=== PATIENT | male | born 1990 | race Two or more races ===

== ENCOUNTER 2016-10-17 16:14 | Emergency (ER) | payer SELFPAY ==
[~2016-10-17] VITALS: Ht 175.3 cm; Wt 70.8 kg
[2016-10-17 16:36] VITALS: BP 143/94
[2016-10-17] MEDS ORDERED: ONDANSETRON HCL/PF 4 MG/2 ML VIAL IV STA (16:36)
--- NOTE | 2016-10-17 16:39 | NUR ---
PT AMBULATORY TO ER BED 16 WITH COMPLAINTS OF GENERALIZED WEAKNESS S/P HECTIC LIFESTYLE. PT STATES THAT HE BEGAN FEELING A L SIDED CHEST PAIN WHEN WAKING UP THIS MORNING ASSOCIATED WITH DRINKING HEAVILY LAST NIGHT. PT IS WARM TO TOUCH, NON DIAPHORETIC, NON TACHYCARDIC, BREATHING EQUAL AND UNLABORED. PT PLACED IN ER BED 16, SEEN AND EVALUATED BY FELIX PAK.
--- NOTE | 2016-10-17 16:45 | NUR ---
Patient does not wish to proceed with medical care recommended by FELIX PAK. Patient given information related to possible complications, up to and including , which could occur as a result of leaving the hospital at this time. Patient verbalizes understanding of risks involved due to leaving against medical advice. Patient has signed AMA form.
[2016-10-17] MEDS ORDERED: IV NS 0.9% 1,000 ML BAG IV ONE (17:00)
== END 2016-10-17 16:48 | disposition left against medical advice (07) ==
LOC: ER 16:15
DX: R07.89 Other chest pain (principal); F41.9 Anxiety disorder, unspecified; F10.20 Alcohol dependence, uncomplicated
CPT/HCPCS: A4606; Z7610

== ENCOUNTER 2018-01-29 09:16 | Emergency (ER) | payer OTHER ==
[~2018-01-29] VITALS: Ht 175.3 cm; Wt 68.0 kg
[2018-01-29 09:16] VITALS: BP 129/83
[2018-01-29] MEDS ORDERED: oxyCODONE/APAP (5/325 MG) 1 UDTAB TABLET ONE (09:46)
[2018-01-29] MEDS ORDERED: IBUPROFEN 600 MG TABLET PO ONE ×2 (09:47→10:00)
[2018-01-29] MEDS ORDERED: oxyCODONE/APAP (5/325 MG) 1 UDTAB TABLET PO ONE (10:00)
== END 2018-01-29 11:29 | disposition home or self-care (01) ==
LOC: ER 09:22
DX: S86.812A Strain of other muscle(s) and tendon(s) at lower leg level, left leg, initial encounter (principal); M25.362 Other instability, left knee; F41.9 Anxiety disorder, unspecified; F10.10 Alcohol abuse, uncomplicated; Y90.9 Presence of alcohol in blood, level not specified; X58.XXXA Exposure to other specified factors, initial encounter; Y93.89 Activity, other specified; Y92.89 Other specified places as the place of occurrence of the external cause; Y99.8 Other external cause status
CPT/HCPCS: 73564-TC; A4606; Z7610

== ENCOUNTER 2018-06-22 12:27 | Emergency (ER) | payer OTHER ==
[~2018-06-22] VITALS: Ht 167.6 cm; Wt 65.8 kg
[2018-06-22 12:50] VITALS: BP 137/78
== END 2018-06-22 13:23 | disposition home or self-care (01) ==
LOC: ER 12:32
DX: K64.4 Residual hemorrhoidal skin tags (principal); F41.9 Anxiety disorder, unspecified; F10.10 Alcohol abuse, uncomplicated; Y90.9 Presence of alcohol in blood, level not specified; Z96.659 Presence of unspecified artificial knee joint
CPT/HCPCS: 99283; A4606; Z7610

== ENCOUNTER 2018-09-19 05:40 | Emergency (ER) | payer OTHER ==
[~2018-09-19] VITALS: Ht 172.7 cm; Wt 72.6 kg
--- NOTE | 2018-09-19 05:41 | NUR ---
PT BIBSELF COMPLAINING OF SOB AND CHEST PAIN. PT STATES THEY WOKE UP AT 0300 WITH SOB AND CHEST PAIN, 09/21. PT AXO4. RESPIRATIONS EVEN AND UNLABORED. PT PUT ON THE ARTIST AGENT AND PULSE OX. PENDING EVAL FROM ER .
--- NOTE | 2018-09-19 06:08 | NUR ---
XRAY AT BEDSIDE.
--- NOTE | 2018-09-19 06:15 | NUR ---
HOTEL MANAGER AT BEDSIDE. LABS DRAWN.
[2018-09-19 06:27] LABS: BASOPHILS % (AUTO) 0.6 % (0.0-2.0); HEMATOCRIT 48 % (39-51); HEMOGLOBIN 16.8 g/dL (13.5-17.5); LYMPHOCYTES % (AUTO) 17.3 % (20.0-44.0); MEAN CORPUSCULAR HGB CONC 35 g/dl (31.0-36.0); MEAN CORPUSCULAR VOLUME 93 fL (80-96); MONOCYTES # (AUTO) 0.6 /CMM (0.1-1.30); MONOCYTES % (AUTO) 9.4 % (2.0-12.0); NEUTROPHILS # (AUTO) 4.3 /CMM (1.8-8.9); NEUTROPHILS % (AUTO) 71.7 % (43.0-81.0); PLATELET COUNT (AUTO) 266 /CMM (150-450); RED BLOOD CELL COUNT(AUTO) 5.18 MIL/uL (4.5-6.0)
[2018-09-19 06:32] LABS: CALCIUM, SERUM 9.5 mg/dL (8.5-10.1); CARBON DIOXIDE 25 mmol/L (21-32); CHLORIDE 103 mmol/L (98-107); GLUCOSE 110 mg/dL (74-106); POTASSIUM 4.1 mmol/L (3.5-5.1); SODIUM SERUM 142 mmol/L (136-145); UREA NITROGEN, BLOOD 13 mg/dL (7-18)
[2018-09-19 06:38] LABS: ALANINE AMINOTRANSFERASE 119 U/L (12-78); ALBUMIN 4.4 g/dL (3.4-5.0); ALKALINE PHOSPHATASE 120 U/L (46-116); ASPARTATE AMINOTRANSFERASE 71 U/L (15-37); BILIRUBIN,DIRECT 0.1 mg/dL (0.0-0.2); BILIRUBIN,TOTAL 0.4 mg/dL (0.2-1.0); LIPASE 81 U/L (73-393); TOTAL PROTEIN, SERUM 8.6 g/dL (6.4-8.2)
--- NOTE | 2018-09-19 06:50 | NUR ---
Patient discharged to home in stable condition. Written and verbal after care instructions given. Patient verbalizes understanding of instruction. Pt ambulatory with steady gait.
[2018-09-19 06:51] VITALS: BP 136/88
== END 2018-09-19 06:51 | disposition home or self-care (01) ==
LOC: ER 05:42
DX: F41.9 Anxiety disorder, unspecified (principal); R07.89 Other chest pain; F10.10 Alcohol abuse, uncomplicated; Y90.9 Presence of alcohol in blood, level not specified; Z98.890 Other specified postprocedural states
CPT/HCPCS: 36415; 71045-TC; 80048-TC; 80076-TC; 83690-TC; 84484-TC; 85025-TC

== ENCOUNTER 2019-02-03 07:05 | Emergency (ER) | payer OTHER ==
[~2019-02-03] VITALS: Ht 175.3 cm; Wt 73.9 kg
--- NOTE | 2019-02-03 07:08 | NUR ---
CALLED PT IN WAITING ROOM. NO REPSONSE.
[2019-02-03 07:20] VITALS: BP 139/91
--- NOTE | 2019-02-03 07:44 | NUR ---
Patient discharged to home in stable condition. Written and verbal after care instructions given. Patient verbalizes understanding of instruction.
== END 2019-02-03 07:44 | disposition home or self-care (01) ==
LOC: ER 07:07
DX: F41.9 Anxiety disorder, unspecified (principal); F10.10 Alcohol abuse, uncomplicated; Z98.890 Other specified postprocedural states; Y90.9 Presence of alcohol in blood, level not specified

== ENCOUNTER 2019-02-27 12:46 | Emergency (ER) | payer OTHER ==
[~2019-02-27] VITALS: Ht 175.3 cm; Wt 73.9 kg
[2019-02-27 12:52] VITALS: BP 128/82
[2019-02-27] MEDS ORDERED: IV NS 0.9% 500 ML BAG IV ONE (13:00)
== END 2019-02-27 13:17 | disposition home or self-care (01) ==
LOC: ER 12:51
DX: F10.10 Alcohol abuse, uncomplicated (principal); F41.9 Anxiety disorder, unspecified; R11.2 Nausea with vomiting, unspecified; Y90.9 Presence of alcohol in blood, level not specified
CPT/HCPCS: 96360; 99283; J7030

== ENCOUNTER 2019-03-06 22:28 | Emergency (ER) | payer OTHER ==
[~2019-03-06] VITALS: Ht 175.3 cm; Wt 73.9 kg
[2019-03-06] MEDS ORDERED: IV NS 0.9% 1,000 ML BAG IV ONE (23:00)
[2019-03-06] MEDS ORDERED: ONDANSETRON HCL/PF 4 MG/2 ML VIAL IVP ONE (23:00)
[2019-03-06] MEDS ORDERED: ONDANSETRON HCL/PF 4 MG/2 ML VIAL ONE (23:03)
--- NOTE | 2019-03-06 23:04 | NUR ---
PT TO RADIOLOGY ON [facility].
--- NOTE | 2019-03-06 23:05 | NUR ---
RIKI FROM HOME. TO ER BED 10. AAO, INTOXICATED, SMELLS OF ALCOHOL. NO RESP DISTRESS NOTED. C/O "I DONT FEEL GOOD. NAY BEEN BINGEING FOR THE PAST 4 DAYS". PT REPORTS THAT HIS CHEST HURT IN THE MID CHEST. C/O NAUSEA. PT REPORT THAT HE DRINKS PLENTY OF ALCOHOL AND HE IS ON LIBRIUM. RAYMON COLBERT AT BEDSIDE FOR EVAL. ORDERS RECEIVED,NOTED AND CARRIED OUT.
--- NOTE | 2019-03-07 00:20 | NUR ---
Patient discharged to home in stable condition. Written and verbal after care instructions given. Patient verbalizes understanding of instruction.IV removed. Catheter intact and site benign. Pressure and 4x4 applied to site. No bleeding noted. Pt ambulatory with a steady gait
[2019-03-07 00:21] VITALS: BP 108/77
== END 2019-03-07 00:22 | disposition home or self-care (01) ==
LOC: ER 22:29
DX: S09.8XXA Other specified injuries of head, initial encounter (principal); F10.129 Alcohol abuse with intoxication, unspecified; F41.9 Anxiety disorder, unspecified; R11.2 Nausea with vomiting, unspecified; Z98.890 Other specified postprocedural states; W18.39XA Other fall on same level, initial encounter; Y93.89 Activity, other specified; Y92.89 Other specified places as the place of occurrence of the external cause; Y99.8 Other external cause status; Y90.9 Presence of alcohol in blood, level not specified
CPT/HCPCS: 70450; 72125; 96361; 96374; 99284; J2405; J7030 ×2; L0172

== ENCOUNTER 2019-03-08 00:56 | Emergency (ER) | payer OTHER ==
[~2019-03-08] VITALS: Ht 175.3 cm; Wt 75.7 kg
[2019-03-08 01:01] VITALS: BP 134/87
[2019-03-08] MEDS ORDERED: LORAZEPAM INJ 2 MG/ML VIAL ONE (01:11)
[2019-03-08] MEDS ORDERED: LORAZEPAM INJ 2 MG/ML VIAL IM ONE (01:30)
[2019-03-08] MEDS ORDERED: IV NS 0.9% 1,000 ML BAG IV ONE (01:30)
== END 2019-03-08 02:03 | disposition home or self-care (01) ==
LOC: ER 00:59
DX: F10.230 Alcohol dependence with withdrawal, uncomplicated (principal); F41.9 Anxiety disorder, unspecified; Z98.890 Other specified postprocedural states; Y90.9 Presence of alcohol in blood, level not specified
CPT/HCPCS: 96372; 99283; J2060; J7030

== ENCOUNTER 2019-04-13 04:36 | Emergency (ER) | payer OTHER ==
[~2019-04-13] VITALS: Ht 175.3 cm; Wt 75.7 kg
[2019-04-13 04:44] VITALS: BP 130/85
== END 2019-04-13 04:56 | disposition home or self-care (01) ==
LOC: ER 04:43
DX: J02.9 Acute pharyngitis, unspecified (principal); F41.9 Anxiety disorder, unspecified; F10.10 Alcohol abuse, uncomplicated; Y90.9 Presence of alcohol in blood, level not specified; Z98.890 Other specified postprocedural states

== ENCOUNTER 2019-05-05 22:39 | Emergency (ER) | payer OTHER ==
[~2019-05-05] VITALS: Ht 175.3 cm; Wt 75.7 kg
[2019-05-05 23:47] VITALS: BP 147/99
--- NOTE | 2019-05-05 23:47 | NUR ---
PT BIBMOTHER C/O SOB, DIARRHEA, CHEST PRESSURE WITH NUMBNESS AND TINGLING IN BOTH HAND AND HEAD X4 DAYS. UNABLE TO SLEEP X4 DAYS. (+) ETOH. NAD NOTED. RESP EVEN AND UNLABORED. PT IN BED 13. WILL CONTINUE TO MONITOR.
--- NOTE | 2019-05-05 23:54 | NUR ---
PHLEB AT BEDSIDE FOR LAB DRAW
[2019-05-05] MEDS ORDERED: LORAZEPAM 0.5 MG TABLET ONE (23:57)
--- NOTE | 2019-05-05 23:59 | NUR ---
TECH AT BEDSIDE FOR EKG
[2019-05-06] MEDS ORDERED: LORAZEPAM 1 MG TABLET PO ONE
[2019-05-06 00:21] LABS: CALCIUM, SERUM 9.4 mg/dL (8.5-10.1); POTASSIUM 3.7 mmol/L (3.5-5.1)
== END 2019-05-06 00:56 | disposition home or self-care (01) ==
LOC: ER 22:41
DX: F41.9 Anxiety disorder, unspecified (principal); F10.10 Alcohol abuse, uncomplicated; E86.0 Dehydration; Y90.9 Presence of alcohol in blood, level not specified; Z98.890 Other specified postprocedural states
CPT/HCPCS: 36415; 80048-TC

== ENCOUNTER 2019-07-14 08:56 | Emergency (ER) | payer MEDICAID, OTHER ==
[~2019-07-14] VITALS: Ht 175.3 cm; Wt 68.0 kg
--- NOTE | 2019-07-14 09:42 | NUR ---
dr thompson at bedside for eval.
[2019-07-14] MEDS ORDERED: ONDANSETRON HCL/PF 4 MG/2 ML VIAL ONE (09:45)
--- NOTE | 2019-07-14 09:55 | NUR ---
iv line started blood drawn and sent to lab.
[2019-07-14 09:59] LABS: BASOPHILS % (AUTO) 0.5 % (0.0-2.0); EOSINOPHILS % (AUTO) 0.2 % (0.0-6.0); HEMATOCRIT 47 % (39-51); LYMPHOCYTES # (AUTO) 0.8 /CMM (0.8-4.8); LYMPHOCYTES % (AUTO) 17.1 % (20.0-44.0); MEAN CORPUSCULAR HGB CONC 34 g/dl (31.0-36.0); MEAN CORPUSCULAR VOLUME 95 fL (80-96); MONOCYTES # (AUTO) 0.3 /CMM (0.1-1.30); MONOCYTES % (AUTO) 5.9 % (2.0-12.0); NEUTROPHILS # (AUTO) 3.5 /CMM (1.8-8.9); NEUTROPHILS % (AUTO) 76.3 % (43.0-81.0); PLATELET COUNT (AUTO) 296 /CMM (150-450); RED BLOOD CELL COUNT(AUTO) 4.97 MIL/uL (4.5-6.0); WHITE BLOOD COUNT (AUTO) 4.6 K/uL (4.3-11.0)
[2019-07-14] MEDS ORDERED: IV NS 0.9% 1,000 ML BAG IV ONE (10:00)
[2019-07-14] MEDS ORDERED: ONDANSETRON HCL/PF - ER 4 MG/2 ML VIAL IV ONE (10:00)
[2019-07-14 10:05] LABS: POTASSIUM 3.9 mmol/L (3.5-5.1)
[2019-07-14 10:12] LABS: BILIRUBIN,DIRECT 0.1 mg/dL (0.0-0.2); BILIRUBIN,TOTAL 0.3 mg/dL (0.2-1.0); TOTAL PROTEIN, SERUM 8.1 g/dL (6.4-8.2)
[2019-07-14 11:33] LABS: APPEARANCE,URINE Clear (CLEAR); BILIRUBIN,URINE Negative (NEGATIVE); BLOOD, URINE Negative Ery/uL (NEGATIVE); COLOR,URINE Yellow (YELLOW); KETONES,URINE Negative (NEGATIVE); LEUKOCYTE ESTERASE ,URINE Negative (NEGATIVE); NITRITE, URINE Negative (NEGATIVE); PROTEIN,URINE Negative (NEGATIVE); UGLUCOSE Negative (NEGATIVE); UROBILINOGEN,URINE 0.2 EU/dL (0.2)
--- NOTE | 2019-07-14 12:18 | NUR ---
Patient discharged to home in stable condition. Written and verbal after care instructions given. Patient verbalizes understanding of instruction.IV removed. Catheter intact and site benign. Pressure and 4x4 applied to site. No bleeding noted.
[2019-07-14 12:28] VITALS: BP 146/86
== END 2019-07-14 12:28 | disposition home or self-care (01) ==
LOC: ER 08:58
DX: F10.20 Alcohol dependence, uncomplicated (principal); R11.2 Nausea with vomiting, unspecified; R10.9 Unspecified abdominal pain; F41.9 Anxiety disorder, unspecified; Z98.890 Other specified postprocedural states; Y90.9 Presence of alcohol in blood, level not specified
CPT/HCPCS: 36415; 80048; 80076; 81001; 83690; 85025; 96361; 96374; 99283; J2405 ×2; J7030; 81000-TC

== ENCOUNTER 2020-08-04 19:56 | Emergency (ER) | payer MEDICAID, OTHER ==
[~2020-08-04] VITALS: Ht 175.3 cm; Wt 70.8 kg
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
--- NOTE | 2020-08-04 20:20 | NUR ---
TECH AT BEDSIDE FOR EKG
[2020-08-04 20:51] LABS: BILIRUBIN,URINE SMALL (NEGATIVE); COLOR,URINE YELLOW (YELLOW); LEUKOCYTE ESTERASE ,URINE Negative (NEGATIVE); NITRITE, URINE Negative (NEGATIVE); PH,URINE 5.5 (5.0-8.0); PROTEIN,URINE Negative (NEGATIVE); UGLUCOSE Negative (NEGATIVE); UROBILINOGEN,URINE 0.2 EU/dL (0.2)
[2020-08-04 21:51] LABS: WBC,URINE 0-2 /HPF (0-3)
[2020-08-04 21:52] LABS: BACTERIA,URINE 1+ /HPF (None Seen); MUCUS,URINE Moderate /LPF (None Seen); SQUAMOUS EPITHELIAL CELL,UR Few /HPF (None Seen)
[2020-08-04] MEDS ORDERED: DOXY100C2 PO (22:16)
[2020-08-04] MEDS ORDERED: CEFTRIAXONE 500 MG VIAL ONE (22:24)
[2020-08-04] MEDS ORDERED: LIDOCAINE /MPF 1% VIAL 5 ML VIAL ONE (22:24)
[2020-08-04] MEDS ORDERED: CEFTRIAXONE 500 MG VIAL IM ONE (22:30)
[2020-08-04 22:37] VITALS: BP 133/74
--- NOTE | 2020-08-04 22:37 | NUR ---
Patient discharged to home in stable condition. Written and verbal after care instructions given. Patient verbalizes understanding of instruction.
== END 2020-08-04 22:37 | disposition home or self-care (01) ==
LOC: ER 20:00
DX: F41.9 Anxiety disorder, unspecified (principal); R00.2 Palpitations; R82.71 Bacteriuria; F10.10 Alcohol abuse, uncomplicated; E78.1 Pure hyperglyceridemia; Y90.9 Presence of alcohol in blood, level not specified; Z98.890 Other specified postprocedural states; Z79.899 Other long term (current) drug therapy
CPT/HCPCS: 81001; 87086; 87491; 87591; 93005; 96372; 99284; J0696; J3490

== ENCOUNTER 2020-08-06 19:47 | Emergency (ER) | payer OTHER ==
[~2020-08-06] VITALS: Ht 175.3 cm; Wt 70.8 kg
[~2020-08-06 19:47] MED LIST: DOXY100C2 PO
--- NOTE | 2020-08-06 20:20 | NUR ---
URINE COLLECTED AND SENT TO LAB
[2020-08-06] MEDS ORDERED: MORPHINE SULFATE INJ 2 MG/ML DISP.SYRIN IV ONE (20:30)
[2020-08-06] MEDS ORDERED: IV NS 0.9% 1,000 ML BAG IV ONE (20:30)
[2020-08-06] MEDS ORDERED: PANTOPRAZOLE 40 MG VIAL IV ONE (20:30)
[2020-08-06] MEDS ORDERED: ONDANSETRON HCL/PF 4 MG/2 ML VIAL IVP ONE (20:30)
[2020-08-06] MEDS ORDERED: MORPHINE SULFATE INJ 4 MG/ML DISP.SYRIN ONE (20:38)
[2020-08-06] MEDS ORDERED: PANTOPRAZOLE 40 MG VIAL ONE (20:38)
[2020-08-06] MEDS ORDERED: ONDANSETRON HCL/PF 4 MG/2 ML VIAL ONE (20:38)
[2020-08-06 20:42] LABS: BASOPHILS # (AUTO) 0.1 /CMM (0.0-0.2); BASOPHILS % (AUTO) 0.7 % (0.0-2.0); EOSINOPHILS % (AUTO) 1.1 % (0.0-6.0); HEMATOCRIT 49 % (39-51); HEMOGLOBIN 16.9 g/dL (13.5-17.5); LYMPHOCYTES # (AUTO) 1.1 /CMM (0.8-4.8); LYMPHOCYTES % (AUTO) 15.3 % (20.0-44.0); MEAN CORPUSCULAR HGB CONC 34 g/dl (31.0-36.0); MEAN CORPUSCULAR VOLUME 96 fL (80-96); MONOCYTES # (AUTO) 0.6 /CMM (0.1-1.30); MONOCYTES % (AUTO) 7.9 % (2.0-12.0); NEUTROPHILS # (AUTO) 5.5 /CMM (1.8-8.9); PLATELET COUNT (AUTO) 316 /CMM (150-450); RED BLOOD CELL COUNT(AUTO) 5.13 MIL/uL (4.5-6.0); WHITE BLOOD COUNT (AUTO) 7.3 K/uL (4.3-11.0)
[2020-08-06] MEDS ORDERED: IOHEXOL-300 100 ML VIAL IV ONE ×2 (20:58→21:20)
[2020-08-06] MEDS ORDERED: IV NS 0.9% 250 ML IV ONE ×2 (20:58→21:20)
[2020-08-06 21:04] LABS: ALBUMIN 4.3 g/dL (3.4-5.0); BILIRUBIN,DIRECT 0.2 mg/dL (0.0-0.2); BILIRUBIN,TOTAL 0.8 mg/dL (0.2-1.0); CALCIUM, SERUM 9.2 mg/dL (8.5-10.1); POTASSIUM 3.5 mmol/L (3.5-5.1)
[2020-08-06] MEDS ORDERED: CT SWABBABLE VALVE TRANS SET 1 EA INFUS.SET MC ONE (21:20)
[2020-08-06] MEDS ORDERED: NYST5ORA PO (21:45)
[2020-08-06] MEDS ORDERED: IBUP-1957 PO (21:51)
[2020-08-06 21:54] LABS: OCCULT BLOOD STOOL NEGATIVE (NEGATIVE)
[2020-08-06] MEDS ORDERED: ALBUTEROL FS 2.5 MG/3 ML VIAL.NEB CONTNEB ONE (22:00)
--- NOTE | 2020-08-06 22:33 | NUR ---
Patient discharged to home in stable condition. Written and verbal after care instructions given. Patient verbalizes understanding of instruction. IV removed. Catheter intact and site benign. Pressure and 4x4 applied to site. No bleeding noted.
[2020-08-06 22:35] VITALS: BP 124/72
== END 2020-08-06 22:35 | disposition home or self-care (01) ==
LOC: ER 19:50
DX: K14.1 Geographic tongue (principal); K63.89 Other specified diseases of intestine; F41.9 Anxiety disorder, unspecified; Z98.890 Other specified postprocedural states; Z79.899 Other long term (current) drug therapy
CPT/HCPCS: 36415; 71045; 74177; 80048; 80076; 82272; 83690; 85025; 85730; 87806; 96361; 96374; 96375; 99285; C9113; J2270; J2405; J7030; J7050 ×2; Q9967 ×2

== ENCOUNTER 2021-10-02 04:51 | Emergency (ER) | payer OTHER ==
[~2021-10-02] VITALS: Ht 175.3 cm; Wt 72.6 kg
[~2021-10-02 04:51] MED LIST changes: +IBUP-1957 PO; +NYST5ORA PO
--- NOTE | 2021-10-02 05:04 | NUR ---
CALLED FOR TRIAGE, NO ANSWER.
--- NOTE | 2021-10-02 06:00 | NUR ---
BIBSELF C/O EPIGASTRIC PAIN AND TREMORS. ENDORSES CHRONIC ALCOHOL ABUSE LAST DRINK WAS 2 HOURS [facility]CH GR[facility]ER. PT ALSO ENDORSES AN EPISODE OF BLOODY EMESIS AND DIFFICULTY SLEEPING. PT AWAKE AND ALERT X4 AMBULATORY WITH STEADY GAIT BREATHING EVEN AND UNLABORED. ALL V/S WNL.
[2021-10-02] MEDS ORDERED: CHLORDIAZEPOXIDE HCL 25 MG CAPSULE ONE (06:21)
[2021-10-02] MEDS ORDERED: FAMOTIDINE/PF INJ 20 MG/2 ML VIAL IV ONE ×2 (06:21→06:30)
[2021-10-02] MEDS ORDERED: CHLORDIAZEPOXIDE HCL 25 MG CAPSULE PO ONE (06:30)
[2021-10-02] MEDS ORDERED: IV NS 0.9% 1,000 ML BAG IV ONE (06:30)
--- NOTE | 2021-10-02 06:35 | NUR ---
20G IV LINE ESTABLISHED AT [facility]. BLOOD DRAWN AND SENT TO LAB. URINE COLLECTED AND SENT TO LAB.
[2021-10-02 06:56] LABS: BASOPHILS % (AUTO) 0.6 % (0.0-2.0); EOSINOPHILS % (AUTO) 0.6 % (0.0-6.0); HEMATOCRIT 49 % (39-51); HEMOGLOBIN 16.8 g/dL (13.5-17.5); LYMPHOCYTES # (AUTO) 0.7 K/uL (0.8-4.8); LYMPHOCYTES % (AUTO) 11.9 % (20.0-44.0); MEAN CORPUSCULAR HGB CONC 35 g/dl (31.0-36.0); MEAN CORPUSCULAR VOLUME 97 fL (80-96); MONOCYTES # (AUTO) 0.5 K/uL (0.1-1.30); NEUTROPHILS # (AUTO) 4.4 K/uL (1.8-8.9); NEUTROPHILS % (AUTO) 77.9 % (43.0-81.0); PLATELET COUNT (AUTO) 381 K/uL (150-450); RED BLOOD CELL COUNT(AUTO) 4.99 MIL/uL (4.5-6.0); WHITE BLOOD COUNT (AUTO) 5.7 K/uL (4.3-11.0)
[2021-10-02 06:59] LABS: BILIRUBIN,URINE NEGATIVE (NEGATIVE); COLOR,URINE YELLOW (YELLOW); LEUKOCYTE ESTERASE ,URINE NEGATIVE (NEGATIVE); NITRITE, URINE NEGATIVE (NEGATIVE); PH,URINE 7.5 (5.0-8.0); PROTEIN,URINE TRACE mg/dl (NEGATIVE); UGLUCOSE NEGATIVE (NEGATIVE); UROBILINOGEN,URINE 0.2 EU/dL (0.2)
[2021-10-02 07:18] LABS: BILIRUBIN,DIRECT 0.1 mg/dL (0.0-0.2); BILIRUBIN,TOTAL 0.4 mg/dL (0.2-1.0); CALCIUM, SERUM 9.2 mg/dL (8.5-10.1); CREATININE 0.9 mg/dL (0.6-1.3); POTASSIUM 3.9 mmol/L (3.5-5.1); TOTAL PROTEIN, SERUM 8.9 g/dL (6.4-8.2)
[2021-10-02] MEDS ORDERED: ALPR1TAB2 PO (07:47)
[2021-10-02] MEDS ORDERED: FAMO-131 PO (07:47)
--- NOTE | 2021-10-02 07:54 | NUR ---
IV removed. Catheter intact and site benign. Pressure and 4x4 applied to site. No bleeding noted.Patient discharged to home in stable condition. Written and verbal after care instructions given. Patient verbalizes understanding of instruction.
[2021-10-02 07:55] VITALS: BP 141/85
[2021-10-02 08:47] LABS: BACTERIA,URINE Few /HPF (None Seen); SQUAMOUS EPITHELIAL CELL,UR None Seen /HPF (None Seen)
[2021-10-02 08:48] LABS: MUCUS,URINE Few /LPF (None Seen)
== END 2021-10-02 07:55 | disposition home or self-care (01) ==
LOC: ER 05:02
DX: K29.70 Gastritis, unspecified, without bleeding (principal); F10.20 Alcohol dependence, uncomplicated; F41.9 Anxiety disorder, unspecified; Z79.899 Other long term (current) drug therapy; Y90.2 Blood alcohol level of 40-59 mg/100 ml
CPT/HCPCS: 36415; 80048; 80076; 80143; 80307; 80320; 81001; 83690; 85025; 96361; 96374; 99283; J3490; J7030; G0480

== ENCOUNTER 2021-11-23 18:07 | Emergency (ER) | payer OTHER ==
[~2021-11-23] VITALS: Ht 175.3 cm; Wt 77.1 kg
[~2021-11-23 18:07] MED LIST changes: +ALPR1TAB2 PO; +FAMO-131 PO
--- NOTE | 2021-11-23 18:19 | NUR ---
TO ER BED 9. BIBS C/O ABDOMINAL PAIN X2WKS PAIN IS WORSE THAT PAST COUPLE DAYS AND RADIATES TO UPPER BACK, SOME VOMITING AND DARK BLOOD IN STOOL "I'VE BEEN DRINKING A LOT." PT ATTCHED TO MONITOR, VITALS ARE WITHIN NORMAL LIMITS. AWAITING MD LIND.
--- NOTE | 2021-11-23 18:29 | NUR ---
URINE COLLECTED AND SENT
[2021-11-23] MEDS ORDERED: IV NS 0.9% 1,000 ML BAG IV ONE ×2 (18:30→19:00)
[2021-11-23] MEDS ORDERED: ONDANSETRON HCL/PF 4 MG/2 ML VIAL IVP ONE (18:30)
--- NOTE | 2021-11-23 18:40 | NUR ---
IV ESTABLISHED R AC 20G. LABS DRAWN AND COLLECTED AT BEDSIDE.
[2021-11-23] MEDS ORDERED: PANTOPRAZOLE 40 MG VIAL ONE (18:43)
[2021-11-23] MEDS ORDERED: ONDANSETRON HCL/PF 4 MG/2 ML VIAL ONE (18:43)
[2021-11-23] MEDS: PANTOPRAZOLE 40 MG VIAL IV ONE ×2 (18:52→18:58)
[2021-11-23] MEDS ORDERED: MORPHINE SULFATE INJ 2 MG/ML DISP.SYRIN IV ONE (19:00)
[2021-11-23 19:19] LABS: ALBUMIN 3.6 g/dL (3.4-5.0); BILIRUBIN,DIRECT 0.4 mg/dL (0.0-0.2); BILIRUBIN,TOTAL 1.1 mg/dL (0.2-1.0); CALCIUM, SERUM 8.2 mg/dL (8.5-10.1); CREATININE 0.8 mg/dL (0.6-1.3); POTASSIUM 3.3 mmol/L (3.5-5.1); TOTAL PROTEIN, SERUM 8.4 g/dL (6.4-8.2)
[2021-11-23 19:39] LABS: BILIRUBIN,URINE NEGATIVE (NEGATIVE); COLOR,URINE AMBER (YELLOW); LEUKOCYTE ESTERASE ,URINE NEGATIVE (NEGATIVE); NITRITE, URINE NEGATIVE (NEGATIVE); PH,URINE 5.5 (5.0-8.0); PROTEIN,URINE NEGATIVE (NEGATIVE); UGLUCOSE NEGATIVE (NEGATIVE)
[2021-11-23 20:22] LABS: BACTERIA,URINE None seen /HPF (None Seen); BASOPHILS # (AUTO) 0.1 K/uL (0.0-0.2); EOSINOPHILS % (AUTO) 1.5 % (0.0-6.0); HEMATOCRIT 48 % (39-51); HEMOGLOBIN 16.6 g/dL (13.5-17.5); LYMPHOCYTES # (AUTO) 1.3 K/uL (0.8-4.8); LYMPHOCYTES % (AUTO) 24.1 % (20.0-44.0); MEAN CORPUSCULAR HGB CONC 35 g/dl (31.0-36.0); MEAN CORPUSCULAR VOLUME 98 fL (80-96); MONOCYTES # (AUTO) 0.8 K/uL (0.1-1.30); MONOCYTES % (AUTO) 14.5 % (2.0-12.0); NEUTROPHILS # (AUTO) 3.2 K/uL (1.8-8.9); NEUTROPHILS % (AUTO) 58.9 % (43.0-81.0); PLATELET COUNT (AUTO) 159 K/uL (150-450); RED BLOOD CELL COUNT(AUTO) 4.91 MIL/uL (4.5-6.0); SQUAMOUS EPITHELIAL CELL,UR 0-2 /HPF (None Seen); WBC,URINE 0-2 /HPF (0-3); WHITE BLOOD COUNT (AUTO) 5.4 K/uL (4.3-11.0)
[2021-11-23] MEDS ORDERED: PANT40TA2 PO (20:30)
--- NOTE | 2021-11-23 20:45 | NUR ---
IV removed. Catheter intact and site benign. Pressure and 4x4 applied to site. No bleeding noted.
[2021-11-23 20:55] VITALS: BP 125/71
--- NOTE | 2021-11-23 20:55 | NUR ---
Patient discharged to home in stable condition. Written and verbal after care instructions given. Patient verbalizes understanding of instruction.
== END 2021-11-23 20:55 | disposition home or self-care (01) ==
LOC: ER 18:14
DX: F10.20 Alcohol dependence, uncomplicated (principal); K29.20 Alcoholic gastritis without bleeding; K70.10 Alcoholic hepatitis without ascites; F41.9 Anxiety disorder, unspecified; Z79.899 Other long term (current) drug therapy; Y90.8 Blood alcohol level of 240 mg/100 ml or more
CPT/HCPCS: 36415; 80048; 80076; 80307; 80320; 81001; 83690; 85025; 96361; 96374; 99283; C9113; J7030 ×2; G0480; J2405

== ENCOUNTER 2022-03-11 04:45 | Emergency (ER) | payer OTHER ==
[~2022-03-11] VITALS: Ht 175.3 cm; Wt 70.3 kg
[~2022-03-11 04:45] MED LIST changes: +PANT40TA2 PO
--- NOTE | 2022-03-11 04:45 | NUR ---
PATIENT FOUND WITH ACTIVE SEIZURE IN THE WAITING ROOM. A, OX4 ON TRIAGE BREATHING EVEN AND UNLABORED. STATES HE DRINKS ALCOHOL DAILY AND LAST DRINK WAS 0200. PLACED ON MONITOR AND IV ESTABLISHED 20G AT [facility]. BLOOD DRAWN AND SENT TO LAB. PLACED ON FREIGHT CALLER AND SEIZURE PRECAUTIONS IN PLACE.
[2022-03-11] MEDS ORDERED: THIAMINE HCL 100 MG TABLET ONE (04:54)
[2022-03-11] MEDS ORDERED: FOLIC ACID 1 MG TABLET ONE (04:54)
[2022-03-11] MEDS ORDERED: THIAMINE HCL 100 MG TABLET PO ONE (05:00)
[2022-03-11] MEDS ORDERED: IV NS 0.9% 1,000 ML BAG IV ONE (05:00)
[2022-03-11] MEDS ORDERED: FOLIC ACID 1 MG TABLET PO ONE (05:00)
[2022-03-11 05:13] LABS: BASOPHILS % (AUTO) 0.4 % (0.0-2.0); EOSINOPHILS % (AUTO) 0.3 % (0.0-6.0); HEMATOCRIT 46 % (39-51); HEMOGLOBIN 16.3 g/dL (13.5-17.5); LYMPHOCYTES # (AUTO) 1.2 K/uL (0.8-4.8); LYMPHOCYTES % (AUTO) 17.2 % (20.0-44.0); MEAN CORPUSCULAR HGB CONC 35 g/dl (31.0-36.0); MEAN CORPUSCULAR VOLUME 97 fL (80-96); MONOCYTES # (AUTO) 0.9 K/uL (0.1-1.30); MONOCYTES % (AUTO) 12.7 % (2.0-12.0); NEUTROPHILS # (AUTO) 4.7 K/uL (1.8-8.9); NEUTROPHILS % (AUTO) 69.4 % (43.0-81.0); PLATELET COUNT (AUTO) 257 K/uL (150-450); RED BLOOD CELL COUNT(AUTO) 4.79 MIL/uL (4.5-6.0); WHITE BLOOD COUNT (AUTO) 6.8 K/uL (4.3-11.0)
[2022-03-11 05:24] LABS: CALCIUM, SERUM 8.7 mg/dL (8.5-10.1); CREATININE 0.8 mg/dL (0.6-1.3); POTASSIUM 3.4 mmol/L (3.5-5.1)
[2022-03-11 05:29] LABS: ALBUMIN 3.1 g/dL (3.4-5.0); BILIRUBIN,DIRECT 2.5 mg/dL (0.0-0.2); BILIRUBIN,TOTAL 3.1 mg/dL (0.2-1.0); TOTAL PROTEIN, SERUM 8.3 g/dL (6.4-8.2)
[2022-03-11 06:49] VITALS: BP 120/76
== END 2022-03-11 06:50 | disposition home or self-care (01) ==
LOC: ER 04:54
DX: F10.129 Alcohol abuse with intoxication, unspecified (principal); F41.9 Anxiety disorder, unspecified; Z79.899 Other long term (current) drug therapy; Y90.8 Blood alcohol level of 240 mg/100 ml or more
CPT/HCPCS: 99283; 96360; 85025; 80048; 80076; 36415; 80143; 80320; 80179; J7030; G0480

== ENCOUNTER 2022-03-14 05:22 | Emergency (ER) | payer OTHER ==
[~2022-03-14] VITALS: Ht 175.3 cm; Wt 72.6 kg
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
[2022-03-14] MEDS ORDERED: LORA-259 PO (06:11)
--- NOTE | 2022-03-14 06:16 | NUR ---
Patient discharged to home in stable condition. Written and verbal after care instructions given. Patient verbalizes understanding of instruction.
[2022-03-14 06:17] VITALS: BP 131/70
== END 2022-03-14 06:19 | disposition home or self-care (01) ==
LOC: ER 05:27
DX: G40.909 Epilepsy, unspecified, not intractable, without status epilepticus (principal); F41.9 Anxiety disorder, unspecified; Z79.899 Other long term (current) drug therapy

== ENCOUNTER 2022-11-12 12:54 | Emergency (ER) | payer OTHER ==
[~2022-11-12] VITALS: Ht 167.6 cm; Wt 66.7 kg
[~2022-11-12 12:54] MED LIST changes: +LORA-259 PO
[2022-11-12 13:01] VITALS: BP 122/71
--- NOTE | 2022-11-12 13:01 | NUR ---
FOREST AMARO From Home " called . Alcohol Abuse/last drank 6H ago Has Hx of liver failure." States "Im ok I just want to go" vitals are within normal limits. pt is ambulatory. awaiting md wolf.
--- NOTE | 2022-11-12 13:20 | NUR ---
pt stated that he did not want any care or to be here, md aware.
--- NOTE | 2022-11-12 13:22 | NUR ---
Patient discharged to home in stable condition. Written and verbal after care instructions given. Patient verbalizes understanding of instruction.
== END 2022-11-12 13:22 | disposition home or self-care (01) ==
LOC: ER 12:56
DX: F10.139 Alcohol abuse with withdrawal, unspecified (principal); F41.9 Anxiety disorder, unspecified; Y90.9 Presence of alcohol in blood, level not specified

== ENCOUNTER 2023-11-11 04:21 | Emergency (ER) | payer OTHER ==
[~2023-11-11] VITALS: Ht 172.7 cm; Wt 69.9 kg
[2023-11-11 04:37] VITALS: BP 137/94; TEMP 98.6
[2023-11-11] MEDS ORDERED: TDAP [DIPH/PERTUSSIS/TET] 0.5 ML VIAL IM ONE (05:01)
[2023-11-11] MEDS ORDERED: LIDOCAINE 1%-EPI 1:100,000 20 ML VIAL ONE (05:01)
[2023-11-11] MEDS: LIDOCAINE 1%-EPI 1:100,000 20 ML VIAL TP ONE (05:07)
[2023-11-11] MEDS: TDAP [DIPH/PERTUSSIS/TET] 0.5 ML VIAL IM ONE (05:07)
[2023-11-11 05:41] VITALS: O2SAT 98
== END 2023-11-11 05:42 ==
LOC: ER 04:29
DX: S51.811A Laceration without foreign body of right forearm, initial encounter (principal); F41.9 Anxiety disorder, unspecified; W25.XXXA Contact with sharp glass, initial encounter; Y93.89 Activity, other specified; Y92.89 Other specified places as the place of occurrence of the external cause; Y99.8 Other external cause status
CPT/HCPCS: 12001; 90471; 90715; 99283; J3490